=== PATIENT | female | born 1985 | race Caucasian/White ===

== ENCOUNTER 2022-12-04 14:29 | Emergency (ER) | payer SELFPAY | END 2022-12-04 14:56 | disposition home or self-care (01) | LOC: BURERS 14:29 | DX: S90.01XA Contusion of right ankle, initial encounter (principal); I10 Essential (primary) hypertension; V89.2XXA Person injured in unspecified motor-vehicle accident, traffic, initial encounter | CPT/HCPCS: 99283 ==

== ENCOUNTER 2023-01-03 11:08 | Emergency (ER) | payer SELFPAY ==
[2023-01-03 11:26] LABS: Bilirubin Negative (Negative); Blood, Urine Moderate (Negative); Clarity Cloudy (Clear); Glucose, Urine (Dipstick) Negative (Negative); Ketone, Urine Negative (Negative); Leukocyte Small (Negative); Nitrite Positive (Negative); Protein, Urine (Dipstick) 100 mg/dL (Neg-Trace); Urobilinogen 0.2 mg/dL (Less than 2); pH, Urine 5.5 (5.0-9.0)
[2023-01-03 11:27] LABS: Specific Gravity, Urine 1.003 (1.002-1.036)
[2023-01-03 11:32] LABS: Bacteria/HPF 3+ HPF (None Seen); RBC/HPF 0-3 HPF (0-3); Squamous Epithelial 0-3 HPF (0-3); WBC/HPF 21-50 HPF (0-3)
== END 2023-01-03 12:12 | disposition home or self-care (01) ==
LOC: BURERS 11:08
DX: N39.0 Urinary tract infection, site not specified (principal); I10 Essential (primary) hypertension
CPT/HCPCS: 81003; 81015; 99283

== ENCOUNTER 2023-01-07 06:00 | Emergency (ER) | payer SELFPAY ==
[2023-01-07] MEDS ORDERED: Ciprofloxacin 500 MG TAB ONE (06:25)
== END 2023-01-07 06:30 | disposition home or self-care (01) ==
LOC: BURERS 06:00
DX: N10 Acute pyelonephritis (principal); I10 Essential (primary) hypertension; Z79.899 Other long term (current) drug therapy
CPT/HCPCS: 99283

== ENCOUNTER 2023-03-15 19:34 | Emergency (ER) | payer MEDICAID, SELFPAY ==
[2023-03-15] MEDS ORDERED: Cephalexin 250 MG CAP ONE (19:53)
== END 2023-03-15 19:56 | disposition home or self-care (01) ==
LOC: BURERS 19:34
DX: T81.49XA Infection following a procedure, other surgical site, initial encounter (principal); I10 Essential (primary) hypertension
CPT/HCPCS: 99283

== ENCOUNTER 2023-03-18 12:44 | Emergency (ER) | payer SELFPAY ==
[2023-03-18] MEDS ORDERED: Lidocaine 1% PF 5 ML VIAL ONE (13:45)
== END 2023-03-18 13:30 | disposition home or self-care (01) ==
LOC: BURERS 12:44
DX: L02.416 Cutaneous abscess of left lower limb (principal); I10 Essential (primary) hypertension
CPT/HCPCS: 10060

== ENCOUNTER 2023-03-19 18:05 | Emergency (ER) | payer SELFPAY | END 2023-03-19 19:02 | disposition home or self-care (01) | LOC: BURERS 18:05 | DX: L02.416 Cutaneous abscess of left lower limb (principal); I10 Essential (primary) hypertension | CPT/HCPCS: 99282 ==

== ENCOUNTER 2023-03-21 12:23 | Emergency (ER) | payer SELFPAY | END 2023-03-21 12:48 | disposition home or self-care (01) | LOC: BURERS 12:23 | DX: L02.416 Cutaneous abscess of left lower limb (principal); I10 Essential (primary) hypertension | CPT/HCPCS: 99282 ==

== ENCOUNTER 2023-08-12 14:25 | Emergency (ER) | payer OTHER | END 2023-08-12 15:41 | disposition home or self-care (01) | LOC: BURERS 14:25 | DX: S71.051A Open bite, right hip, initial encounter (principal); I10 Essential (primary) hypertension; W54.0XXA Bitten by dog, initial encounter | CPT/HCPCS: 99283 ==